=== PATIENT | male | born 1970 | race Hispanic/Latino ===

== ENCOUNTER 2020-10-24 13:00 | Emergency (ER) | payer BC ==
[2020-10-24] MEDS ORDERED: KETOROLAC TROMETHAMINE 30MG/ML ONE (13:27)
[2020-10-24] MEDS ORDERED: ORPHENADRINE CITRATE 30 MG/ML ML ONE (13:27)
[2020-10-24] MEDS ORDERED: DEXAMETHASONE SOD PHOSPHATE 10MG/ML 1ML VIAL ONE (13:44)
== END 2020-10-24 14:24 | disposition home or self-care (01) ==
LOC: EDH 13:00
DX: S46.912A Strain of unspecified muscle, fascia and tendon at shoulder and upper arm level, left arm, initial encounter (principal); M79.602 Pain in left arm; I10 Essential (primary) hypertension; E11.9 Type 2 diabetes mellitus without complications; X50.0XXA Overexertion from strenuous movement or load, initial encounter; Y93.89 Activity, other specified; Y92.69 Other specified industrial and construction area as the place of occurrence of the external cause; Y99.8 Other external cause status
CPT/HCPCS: 96372 ×3; 99284; J1100; J1885; J2360